=== PATIENT | male | born 1995 | race Caucasian/White ===

== ENCOUNTER 2021-08-13 19:42 | Emergency (ER) | payer SELFPAY ==
--- NOTE | 2021-08-14 04:50 | Emergency Department Report ---
Blank Doc - Documentation Documentation: Patient eloped. I did not participate in his care.
== END 2021-08-14 06:02 | disposition left against medical advice (07) ==
LOC: ED 19:42
DX: K59.00 Constipation, unspecified (principal); Z53.21 Procedure and treatment not carried out due to patient leaving prior to being seen by health care provider